=== PATIENT | male | born 1975 | race Caucasian/White ===

== ENCOUNTER → 2020-08-28 | Outpatient (CLI) | payer SELFPAY ==
--- NOTE | 2020-08-28 15:28 | Diagnostic Imaging Report ---
PROCEDURE: MR imaging cervical spine without contrast. TECHNIQUE: Multiplanar, multisequence MR imaging of the cervical spine was performed without contrast. INDICATION: Neck pain with radiation of bilateral hands. Anesthesias. COMPARISON: None. FINDINGS: Static alignment of the cervical spine is maintained. There is no significant anterolisthesis or retrolisthesis. There is no evidence of jumped facets. Vertebral body heights are preserved. There is no acute fracture. Marrow signal is normal throughout. Intervertebral disc heights are also fairly well maintained. Cervical cord is normal in size and signal. There is no evidence of cord edema. No abnormal intrathecal filling defects are seen. Included portions of the posterior fossa are unremarkable. Prevertebral and paravertebral soft tissue structures are within normal limits as well. C2-C3: There is no large disc bulge or focal protrusion. There is no significant spinal canal or neuroforaminal stenosis. C3-C4: There is right-sided uncovertebral hypertrophy which results in mild asymmetric narrowing of the right neuroforamen. Spinal canal and left neuroforamen are unremarkable. C4-C5: There is no large disc bulge or focal protrusion. There is no significant spinal canal or neuroforaminal stenosis. C5-C6: There is no large disc bulge or focal protrusion. There is no significant spinal canal or neuroforaminal stenosis. C6-C7: There is no large disc bulge or focal protrusion. There is no significant spinal canal or neuroforaminal stenosis. C7-T1: There is no large disc bulge or focal protrusion. There is no significant spinal canal or neuroforaminal stenosis. IMPRESSION: 1. Minimal degenerative changes at the C3-C4 level on the right. Otherwise, no significant spinal canal or neuroforaminal stenosis. 2. No acute fracture or dislocation in the cervical spine. Dictated by: Dictated on workstation # [id number]
== END ==
LOC: RAD 14:00
PROVIDERS: ATTEND Chiropractor
DX: M54.12 Radiculopathy, cervical region (principal)
CPT/HCPCS: 72141

== ENCOUNTER 2020-10-16 23:58 | Emergency (ER) | payer SELFPAY ==
[~2020-10-16] VITALS: Ht 168 cm; Wt 107.0 kg
--- NOTE | 2020-10-17 00:10 | ED Integumentary General ---
General Chief Complaint: Laceration Stated Complaint: CUT RT ARM Source: patient Exam Limitations: no limitations History of Present Illness Date Seen by Provider: Oct 17, 2020 Time Seen by Provider: 00:01 Initial Comments Patient is a 45-year-old male who presents to the emergency department today with a chief complaint of left hand laceration. Patient states that he was doing dishes when a ceramic plate fell onto some dishwater and broke he reached down to grab the dish and cut his hand between his thumb and index finger. Pain immediately. Significant bleeding. Timing/Duration: just prior to arrival Severity: moderate Location: hands (left) Associated Symptoms: denies symptoms Allergies and Home Medications Allergies Coded Allergies: No Known Drug Allergies (Unverified , 10/17/20) Patient Home Medication List Home Medication List Reviewed: Yes Review of Systems Review of Systems Constitutional: see HPI EENTM: no symptoms reported Respiratory: no symptoms reported Cardiovascular: no symptoms reported Gastrointestinal: no symptoms reported Genitourinary: no symptoms reported Musculoskeletal: no symptoms reported, other Skin: other (4-1/2 cm length laceration by 1-1/2 cm depth laceration located between the index finger and thumb of the left hand in the webspace. Significant active bleeding noted initially.) All Other Systems Reviewed Negative Unless Noted: Yes Physical Exam Vital Signs Vital Signs - First Documented 10/16/20 23:58 Temp 36.6 Pulse 106 Resp 20 B/P (MAP) 133/82 (99) Pulse Ox 96 O2 Delivery Room Air Capillary Refill : General Appearance: WD/WN, no apparent distress Cardiovascular: regular rate, rhythm Respiratory: normal breath sounds, no respiratory distress, no accessory muscle use Gastrointestinal: soft Extremities: non-tender, normal inspection Neurologic/Psychiatric: alert, normal mood/affect, oriented x 3 Skin: normal color, warm/dry, other (Patient is distal neurovascularly intact to the digits of the left hand; 4-1/2 cm length by 1-1/2 cm depth laceration between the webspace of the thumb and index finger) Procedures/Interventions Wound Location: Upper Extremities (left hand) Other Wound Location Located between the index finger and thumb at the webspace Wound Length (cm): 4.5 Wound's Depth, Shape: superficial (1.5cm deep), linear Wound Explored: clean Irrigated w/ Saline (ccs): 50 Betadine Prep?: No Anesthesia: Lidocaine w/ Epi Volume Anesthetic (ccs): 5 Suture: Ethlion, Vicryl (4-0) Suture Size: 4-0 Number of Sutures: 7 Layer Closure?: 2 Number Deep Layer Sutures: 1 Sterile Dressing Applied?: Yes Progress/Results/Core Measures Results/Orders My Orders Orders - SOO GTZ MD Hydrocodone/Apap 7.5/325 Tab (Lortab 7. (10/17/20 01:30) Cephalexin Capsule (Keflex Capsule) (10/17/20 01:30) Rx-Hydrocodone/Apap 5-325 Mg (Rx-Vicodin (10/17/20 01:30) Vital Signs/I&O 10/16/20 23:58 Temp 36.6 Pulse 106 Resp 20 B/P (MAP) 133/82 (99) Pulse Ox 96 O2 Delivery Room Air Progress Progress Note : Time: 01:14 Progress Note Patient seen and evaluated 45-year-old male with a chief complaint of laceration to the left hand. Patient initially had a tourniquet applied to the left upper extremity for hemostasis. Of note a small superficial arterial bleed. With direct pressure and the tourniquet and lidocaine with epinephrine bleeding was controlled and subsequently stopped. Patient's wound was closed with a 4-0 Vicryl stitch in the subcutaneous tissues. Seven 4-0 Ethilon sutures were subsequently placed to the skin. Wound approximated quite well. Patient will be sent home with a hydrocodone take-home pack for pain. He is also given Keflex for infection prophylaxis. He is advised to return to the emergency department in 10 days for wound evaluation and possible suture removal. Patient is in instructed to keep the wound clean dry and covered for the next 72 hours. He is advised not to submerge the lacerated hand in water for the remainder of the sutures being in place. He verbalizes understanding. All questions are sought and answered. Patient is stable for discharge. Departure Impression Primary Impression: Laceration of left hand Qualified Codes: S61.412A - Laceration without foreign body of left hand, initial encounter Disposition: HOME, SELF-CARE Condition: Stable Departure-Patient Inst. Decision time for Depature: 01:19 Referrals: [facility] [place] Patient Instructions: Laceration Repair With Stitches (DC) Add. Discharge Instructions: Keep the wound clean dry and covered for the next 24 to 48 hours. Do not submerge the hand underwater but you may wash the stitches with wet soapy water, rinse them and then keep them dry. The stitches will need to come out in 10 to 14 days. Please come back to the emergency room in 10 days so that we may evaluate the wound and see if they can come out at the 10-day varun. I have given you some hydrocodone for home. You can also take [id number] Tylenol and/or ibuprofen after tomorrow as needed for pain. I have also put you on some Keflex which is an antibiotic. Please take this 3 times a day for the next 7 days. Come back to the emergency department if you have redness, swelling or drainage from the wound or any other emergent concerning symptoms arise. Scripts Cephalexin (Cephalexin) 500 Mg Tablet 500 MG PO TID, #21 TAB Prov: SOO GTZ MD 10/17/20 SOO GTZ MD Oct 17, 2020 00:10
[2020-10-17] MEDS ORDERED: CEPH500T PO (01:22)
[2020-10-17] MEDS ORDERED: RX-HYDROCODONE/APAP 5/325 MG #4 TAB PK PO PRN (01:30)
[2020-10-17] MEDS ORDERED: CEPHALEXIN 250 MG (KEFLEX) CAP PO ONE (01:30)
[2020-10-17] MEDS ORDERED: HYDROcodone/APAP 7.5 MG/325 MG (LORTAB, LORCET PLUS) TABLET PO ONE (01:30)
[2020-10-17 01:35] VITALS: BP 133/82
== END 2020-10-17 01:28 | disposition home or self-care (01) ==
LOC: EDUNIT# 23:58 → ER 10-17
DX: S61.412A Laceration without foreign body of left hand, initial encounter (principal); W25.XXXA Contact with sharp glass, initial encounter
CPT/HCPCS: 12042

== ENCOUNTER 2020-10-27 11:50 | Emergency (ER) | payer SELFPAY ==
[~2020-10-27] VITALS: Ht 172 cm; Wt 107.0 kg
[~2020-10-27 11:50] MED LIST: CEPH500T PO
[2020-10-27 11:55] VITALS: BP 147/101
== END 2020-10-27 11:55 | disposition home or self-care (01) ==
LOC: EDUNIT# 11:50 → ER 11:53
DX: S61.412D Laceration without foreign body of left hand, subsequent encounter (principal); X58.XXXD Exposure to other specified factors, subsequent encounter
CPT/HCPCS: 99281

== ENCOUNTER 2022-05-22 18:11 | Emergency (ER) | payer SELFPAY ==
[~2022-05-22] VITALS: Ht 167 cm; Wt 106.0 kg
[2022-05-22] MEDS ORDERED: morphine INJ 10 MG/ML 1ML (SYR OR VIAL) IVP STA ×2 (18:24→19:47)
[2022-05-22] MEDS ORDERED: KETOROLAC 30 MG/ML VIAL IVP ONE (18:30)
[2022-05-22] MEDS ORDERED: IOHEXOL 350 MG/ML 100 ML (OMNIPAQUE 350) VIAL IV ONE (18:30)
[2022-05-22] MEDS ORDERED: HOLD METFORMIN - RECEIVED CONTRAST 20 ML VIAL IV SCH (18:30)
[2022-05-22] MEDS ORDERED: CATHETER FLUSH 10 ML SYR IV PRN (18:30)
[2022-05-22] MEDS ORDERED: NS 100 ML (IVPB) BAG IV ONE (18:30)
--- NOTE | 2022-05-22 18:36 | ED Abdominal Pain ---
General Chief Complaint: Abdominal/GI Problems Stated Complaint: ABD/BACK PAIN Nursing Triage Note: Pt here with right flank pain that radiates around to his abdomen; describes it as sharp in nature and also achy. Denies n/v/d. Denies urinary s/s. Source of Information: Patient Exam Limitations: No Limitations History of Present Illness Date Seen by Provider: May 22, 2022 Time Seen by Provider: 18:20 Initial Comments Patient is a 46-year-old male who presents to the emergency department for evaluation of right flank and diffuse abdominal pain that began 3 days ago. Patient states the pain does radiate throughout his abdomen. He denies any nausea/vomiting/diarrhea, constipation, bloody stools, fever, hematuria, dysuria. He also denies any testicular pain. Denies any history of similar symptoms. Patient has not taken anything today other than Tylenol and ibuprofen. Allergies and Home Medications Allergies Coded Allergies: No Known Drug Allergies (Unverified , 10/17/20) Patient Home Medication List Home Medication List Reviewed: Yes Cephalexin (Cephalexin) 500 Mg Tablet, 500 MG PO TID Prescribed by: SOO GTZ on 10/17/20 012 Hyoscyamine Sulfate (Levsin-Sl) 0.125 Mg Tab.subl, 0.125 MG SL TID PRN for abd pain Prescribed by: Armond Gibson on 05/22/222017 Ketorolac Tromethamine (Ketorolac Tromethamine) 10 Mg Tablet, 10 MG PO Q6H PRN for PAIN-SEE DOSE INSTRUCTIONS Prescribed by: Armond Gibson on 05/22/222017 Review of Systems Review of Systems Constitutional: no symptoms reported EENTM: No Symptoms Reported Respiratory: No Symptoms Reported Cardiovascular: No Symptoms Reported Gastrointestinal: See HPI Genitourinary: No Symptoms Reported Skin: no symptoms reported Psychiatric/Neurological: No Symptoms Reported Past Ezsnafi-Mdwhfx-Bwxcxt Hx Patient Social History Smoking Status: Never a Smoker Smokeless Tobacco Frequency: Never a User Use of E-Cig and/or Vaping Miguel A: Never a User Substance type: Marijuana Substance frequency: Daily Alcohol Use?: No Pt feels they are or have been: No Immunizations Up To Date Tetanus Booster (TDap): Less than 5yrs PED Vaccines UTD: Yes Seasonal Allergies Seasonal Allergies: No Past Medical History Surgeries: No Respiratory: No Hypertension Neurological: No Genitourinary: No Gastrointestinal: No Musculoskeletal: No Endocrine: No HEENT: No Cancer: No Psychosocial: No Integumentary: No Physical Exam Vital Signs Vital Signs - First Documented 05/22/22 18:21 Temp 35.9 Pulse 76 Resp 18 B/P (MAP) 176/108 (130) Pulse Ox 96 O2 Delivery Room Air Capillary Refill : Less Than 3 Seconds Height/Weight/BMI Height: '" Weight: lbs. oz. kg; 38.00 BMI Method:Actual General Appearance: WD/WN, no apparent distress HEENT: PERRL/EOMI, normal ENT inspection, TMs normal, pharynx normal Neck: non-tender, full range of motion, supple, normal inspection Respiratory: chest non-tender, lungs clear, normal breath sounds, no respiratory distress, no accessory muscle use Cardiovascular: regular rate, rhythm Gastrointestinal: normal bowel sounds, non tender, soft Extremities: normal range of motion, non-tender Back: normal inspection, no vertebral tenderness Neurologic/Psychiatric: alert, normal mood/affect, oriented x 3 Skin: normal color, warm/dry Procedures/Interventions Suture Size: 4-0 Progress/Results/Core Measures Results/Orders Lab Results Laboratory Tests Test 05/22/22 18:30 05/22/22 18:44 Range/Units White Blood Count 6.5 4.3-11.0 10^3/uL Red Blood Count 5.80 H 4.30-5.52 10^6/uL Hemoglobin 17.1 13.3-17.7 g/dL Hematocrit 49 40-54 % Mean Corpuscular Volume 84 80-99 fL Mean Corpuscular Hemoglobin 30 25-34 pg Mean Corpuscular Hemoglobin Concent 35 32-36 g/dL Red Cell Distribution Width 12.4 10.0-14.5 % Platelet Count 210 130-400 10^3/uL Mean Platelet Volume 10.2 9.0-12.2 fL Immature Granulocyte % (Auto) 0 % Neutrophils (%) (Auto) 58 42-75 % Lymphocytes (%) (Auto) 28 12-44 % Monocytes (%) (Auto) 9 0-12 % Eosinophils (%) (Auto) 4 0-10 % Basophils (%) (Auto) 0 0-10 % Neutrophils # (Auto) 3.8 1.8-7.8 10^3/uL Lymphocytes # (Auto) 1.8 1.0-4.0 10^3/uL Monocytes # (Auto) 0.6 0.0-1.0 10^3/uL Eosinophils # (Auto) 0.3 0.0-0.3 10^3/uL Basophils # (Auto) 0.0 0.0-0.1 10^3/uL Immature Granulocyte # (Auto) 0.0 0.0-0.1 10^3/uL Sodium Level 141 135-145 MMOL/L Potassium Level 3.7 3.6-5.0 MMOL/L Chloride Level 106 98-107 MMOL/L Carbon Dioxide Level 24 21-32 MMOL/L Anion Gap 11 5-14 MMOL/L Blood Urea Nitrogen 17 7-18 MG/DL Creatinine 1.37 H 0.60-1.30 MG/DL Estimat Glomerular Filtration Rate 65 BUN/Creatinine Ratio 12 Glucose Level 80 70-105 MG/DL Calcium Level 9.1 8.5-10.1 MG/DL Corrected Calcium 8.8 8.5-10.1 MG/DL Total Bilirubin 0.5 0.1-1.0 MG/DL Aspartate Amino Transf (AST/SGOT) 28 5-34 U/L Alanine Aminotransferase (ALT/SGPT) 48 0-55 U/L Alkaline Phosphatase 71 40-136 U/L Total Protein 7.3 6.4-8.2 GM/DL Albumin 4.4 3.2-4.5 GM/DL Lipase 28 8-78 U/L Urine Color DARK YELLOW Urine Clarity CLEAR Urine pH 5.5 5-9 Urine Specific Noonan >=1.030 1.016-1.022 Urine Protein TRACE H NEGATIVE Urine Glucose (UA) NEGATIVE NEGATIVE Urine Ketones NEGATIVE NEGATIVE Urine Nitrite NEGATIVE NEGATIVE Urine Bilirubin NEGATIVE NEGATIVE Urine Urobilinogen 1.0 < = 1.0 MG/DL Urine Leukocyte Esterase NEGATIVE NEGATIVE Urine RBC (Auto) NEGATIVE NEGATIVE Urine RBC NONE /HPF Urine WBC RARE /HPF Urine Crystals NONE /LPF Urine Bacteria TRACE /HPF Urine Casts NONE /LPF Urine Mucus MODERATE H /LPF Urine Culture Indicated NO My Orders Orders - ARMOND GIBSON TAX TECHNICIAN Cbc With Automated Diff (05/22/22 18:24) Comprehensive Metabolic Panel (05/22/22 18:24) Ua Culture If Indicated (05/22/22 18:24) Lipase (05/22/22 18:24) Iv/Invasive Line Insertion .IV INSERT (05/22/22 18:24) Ct Abdomen W (05/22/22 18:24) Ketorolac Injection (Toradol Injection) (05/22/22 18:30) Morphine Injection (Morphine Injection (05/22/22 18:24) Iohexol Injection (Omnipaque 350 Mg/Ml 1 (05/22/22 18:30) Received Contrast (Hold Metformin- Contr (05/22/22 18:30) Sodium Chloride Flush (Catheter Flush Sy (05/22/22 18:30) Ns (Ivpb) (Sodium Chloride 0.9% Ivpb Bag (05/22/22 18:30) Morphine Injection (Morphine Injection (05/22/22 19:47) Hyoscyamine Sl Tablet (Levsin Sl Tablet) (05/22/22 20:30) Medications Given in ED Current Medications Medications Dose Ordered Sig/Huong Route Start Time Stop Time Status Last Admin Dose Admin Hyoscyamine Sulfate 0.125 mg ONCE ONCE PO 05/22/22 20:30 05/22/22 20:31 DC 05/22/22 20:23 0.125 MG Iohexol 100 ml ONCE ONCE IV 05/22/22 18:30 05/22/22 18:31 DC 05/22/22 19:15 80 ML Ketorolac Tromethamine 15 mg ONCE ONCE IVP 05/22/22 18:30 05/22/22 18:31 DC 05/22/22 18:36 15 MG Sodium Chloride 100 ml ONCE ONCE IV 05/22/22 18:30 05/22/22 18:31 DC 05/22/22 19:15 100 ML Vital Signs/I&O 05/22/22 05/22/22 05/22/22 05/22/22 18:21 18:59 20:14 20:31 Temp 35.9 35.9 Pulse 76 82 70 70 Resp 18 18 18 18 B/P (MAP) 176/108 (130) 154/92 (112) 145/95 (112) 145/95 Pulse Ox 96 96 96 96 O2 Delivery Room Air Room Air Room Air Room Air Blood Pressure Mean: 130 Progress Progress Note : Progress Note Patient is nontoxic and well-hydrated on exam. Patient does have tenderness to palpation to the right flank as well as diffusely throughout his anterior abdomen. Vital signs are reassuring. Laboratory evaluation is unremarkable. No leukocytosis noted on CBC. No metabolic derangements noted on CMP. No transaminitis or elevated lipase appreciated. CT of the abdomen and pelvis with contrast is acutely negative. There is some incidental notation of hepatic steatosis. There appears to be no etiology of the patient's pain that would warrant further emergent testing or surgical intervention/hospitalization. Discussed supportive care and anticipatory guidance. Discussed need for follow- up with PCP. Return precautions for urgent symptomology discussed. Patient verbalized understanding. Departure Impression Primary Impression: Right flank pain Additional Impression: Abdominal pain Qualified Codes: R10.84 - Generalized abdominal pain Disposition: HOME, SELF-CARE Condition: Improved Departure-Patient Inst. Decision time for Depature: 20:15 Referrals: [facility] [place]/Family) Primary Care Physician Patient Instructions: Abdominal Pain, Adult ED, Flank Pain ED Scripts Hyoscyamine Sulfate (Levsin-Sl) 0.125 Mg Tab.subl 0.125 MG SL TID PRN for abd pain for 5 Days, #12 TAB 0 Refills Prov: ARMOND GIBSON APRN 05/22/22 Ketorolac Tromethamine (Ketorolac Tromethamine) 10 Mg Tablet 10 MG PO Q6H PRN for PAIN-SEE DOSE INSTRUCTIONS for 5 Days, #20 TAB 0 Refills Prov: ARMOND GIBSON APRN 05/22/22 ARMOND GIBSON APRN May 22, 2022 18:36
[2022-05-22 18:37] LABS: BASOPHILS % (AUTO) 0 % (0-10); EOSINOPHILS # (AUTO) 0.3 10^3/uL (0.0-0.3); EOSINOPHILS % (AUTO) 4 % (0-10); HEMATOCRIT 49 % (40-54); HEMOGLOBIN 17.1 g/dL (13.3-17.7); LYMPHOCYTES # (AUTO) 1.8 10^3/uL (1.0-4.0); LYMPHOCYTES % (AUTO) 28 % (12-44); MEAN CORPUSCULAR HEMOGLOBIN 30 pg (25-34); MEAN CORPUSCULAR HGB CONC 35 g/dL (32-36); MEAN CORPUSCULAR VOLUME 84 fL (80-99); MEAN PLATELET VOLUME 10.2 fL (9.0-12.2); MONOCYTES # (AUTO) 0.6 10^3/uL (0.0-1.0); MONOCYTES % (AUTO) 9 % (0-12); NEUTROPHILS # (AUTO) 3.8 10^3/uL (1.8-7.8); NEUTROPHILS % (AUTO) 58 % (42-75); PLATELET COUNT 210 10^3/uL (130-400); WHITE BLOOD COUNT 6.5 10^3/uL (4.3-11.0)
[2022-05-22 18:48] LABS: ALBUMIN 4.4 GM/DL (3.2-4.5)
[2022-05-22 18:49] LABS: POTASSIUM 3.7 MMOL/L (3.6-5.0)
[2022-05-22 18:49] LABS: BILIRUBIN,URINE NEGATIVE (NEGATIVE); CLARITY,URINE CLEAR; COLOR,URINE DARK YELLOW; GLUCOSE, URINE (UA) NEGATIVE (NEGATIVE); KETONES,URINE NEGATIVE (NEGATIVE); LEUKOCYTE ESTERASE ,URINE NEGATIVE (NEGATIVE); NITRITE,URINE NEGATIVE (NEGATIVE); PH,URINE 5.5 (5-9); PROTEIN,URINE TRACE (NEGATIVE)
[2022-05-22 18:50] LABS: CALCIUM 9.1 MG/DL (8.5-10.1)
[2022-05-22 18:51] LABS: TOTAL PROTEIN 7.3 GM/DL (6.4-8.2)
[2022-05-22 18:53] LABS: BILIRUBIN,TOTAL 0.5 MG/DL (0.1-1.0)
[2022-05-22 18:55] LABS: BACTERIA,URINE TRACE /HPF; WBC,URINE RARE /HPF
[2022-05-22 18:55] LABS: CREATININE SERUM 1.37 MG/DL (0.60-1.30)
--- NOTE | 2022-05-22 19:48 | Diagnostic Imaging Report ---
PROCEDURE: CT abdomen with contrast only. TECHNIQUE: Multiple contiguous axial images were obtained through the abdomen after the administration of intravenous contrast. Auto Exposure Controls were utilized during the CT exam to meet ALARA standards for radiation dose reduction. INDICATION: Right flank pain with radiation around the abdomen. COMPARISON: None. FINDINGS: Included portions of the lung bases are clear. CT ABDOMEN: Normal appendix is identified. Included small bowel loops are nondistended. The kidneys, adrenal glands, spleen and pancreas have a normal CT appearance. Liver appears mildly diffusely hypodense on this postcontrast exam. This is suggestive of underlying fatty steatosis. No suspicious hepatic mass is seen. There is no loculated fluid collection, free fluid or free air within the abdomen. No abnormal mesenteric or retroperitoneal adenopathy is seen. Osseous structures show no acute abnormality. IMPRESSION: 1. No acute abnormality is seen within the abdomen. 2. Findings suspicious for hepatic steatosis. Dictated by: Dictated on workstation # [id number]
[2022-05-22] MEDS ORDERED: HYOS0.1283 SL (20:18)
[2022-05-22] MEDS ORDERED: KETO10TA PO (20:18)
[2022-05-22] MEDS ORDERED: HYOSCYAMINE 0.125 MG (LEVSIN) TAB PO ONE (20:30)
[2022-05-22 20:31] VITALS: BP 145/95
== END 2022-05-22 20:33 | disposition home or self-care (01) ==
LOC: EDUNIT# 18:11 → ER 18:13
DX: R10.84 Generalized abdominal pain (principal); Z28.310 Unvaccinated for COVID-19
CPT/HCPCS: 36415; 74160; 80053; 81000; 83690; 85025

== ENCOUNTER 2022-06-13 15:16 | Emergency (ER) | payer SELFPAY ==
[~2022-06-13] VITALS: Ht 167.7 cm; Wt 102.1 kg
[~2022-06-13 15:16] MED LIST changes: +HYOS0.1283 SL; +KETO10TA PO
[2022-06-13 15:51] LABS: BASOPHILS % (AUTO) 0 % (0-10); EOSINOPHILS # (AUTO) 0.1 10^3/uL (0.0-0.3); EOSINOPHILS % (AUTO) 2 % (0-10); HEMATOCRIT 47 % (40-54); HEMOGLOBIN 16.5 g/dL (13.3-17.7); LYMPHOCYTES # (AUTO) 1.7 X 10^3 (1.0-4.0); LYMPHOCYTES % (AUTO) 23 % (12-44); MEAN CORPUSCULAR HEMOGLOBIN 30 pg (25-34); MEAN CORPUSCULAR HGB CONC 35 g/dL (32-36); MEAN CORPUSCULAR VOLUME 84 fL (80-99); MEAN PLATELET VOLUME 9.6 fL (9.0-12.2); MONOCYTES # (AUTO) 0.5 X 10^3 (0.0-1.0); MONOCYTES % (AUTO) 7 % (0-12); NEUTROPHILS # (AUTO) 4.9 X 10^3 (1.8-7.8); NEUTROPHILS % (AUTO) 68 % (42-75); PLATELET COUNT 236 10^3/uL (130-400); WHITE BLOOD COUNT 7.2 10^3/uL (4.3-11.0)
[2022-06-13] MEDS ORDERED: KETOROLAC 30 MG/ML VIAL IVP ONE (16:00)
[2022-06-13 16:02] LABS: BILIRUBIN,URINE NEGATIVE (NEGATIVE); CLARITY,URINE CLEAR; COLOR,URINE YELLOW; GLUCOSE, URINE (UA) NEGATIVE (NEGATIVE); KETONES,URINE NEGATIVE (NEGATIVE); LEUKOCYTE ESTERASE ,URINE NEGATIVE (NEGATIVE); NITRITE,URINE NEGATIVE (NEGATIVE); PROTEIN,URINE NEGATIVE (NEGATIVE)
[2022-06-13 16:04] LABS: ALBUMIN 4.1 GM/DL (3.2-4.5)
[2022-06-13 16:05] LABS: POTASSIUM 4.1 MMOL/L (3.6-5.0)
[2022-06-13 16:06] LABS: CALCIUM 9.2 MG/DL (8.5-10.1)
[2022-06-13 16:07] LABS: TOTAL PROTEIN 6.7 GM/DL (6.4-8.2)
[2022-06-13 16:09] LABS: BILIRUBIN,TOTAL 0.6 MG/DL (0.1-1.0)
[2022-06-13 16:10] LABS: CREATININE SERUM 1.22 MG/DL (0.60-1.30)
[2022-06-13 16:20] LABS: BACTERIA,URINE FEW /HPF; RBC,URINE RARE /HPF
--- NOTE | 2022-06-13 16:32 | Diagnostic Imaging Report ---
PROCEDURE: US Scrotum. TECHNIQUE: Multiple real-time grayscale images were obtained over the scrotum in various projections bilaterally. INDICATION: Abdominal pain radiating into groin. FINDINGS: The right testicle measures 4.2 x 2 x 2.8 cm. The left testicle measures 4.2 x 2 x 2.8 cm. No masses are seen. There is microlithiasis seen scattered throughout both testicles. There is normal blood flow within the testes with Doppler sampling. The epididymides appear normal bilaterally. There are no hydroceles or varicoceles. IMPRESSION: 1. Microlithiasis. No other abnormalities noted. Dictated by: Dictated on workstation # [id number]
[2022-06-13] MEDS ORDERED: HYOS0.1283 SL (16:50)
--- NOTE | 2022-06-13 16:50 | ED Abdominal Pain ---
General Chief Complaint: Abdominal/GI Problems Stated Complaint: ABD PAIN Nursing Triage Note: PT AMB TO RM 3 W C/O GENERALIZED ABD PAIN ONLY RELIEVED BY SUPINE POSITION. PT REPORTS HE CAME TO ED FOR THIS ON 05/22/22 AND WENT TO [facility] TODAY WHERE HE WAS ADVISED TO COME TO ED FOR FURTHER EVALUATION AND TX. PT ALSO REPORTS THE PAIN RADIATES DOWN TO HIS TESTICLES. PT A&OX4. Source of Information: Patient Exam Limitations: Intoxication History of Present Illness Date Seen by Provider: Jun 13, 2022 Allergies and Home Medications Allergies Coded Allergies: No Known Drug Allergies (Unverified , 10/17/20) Patient Home Medication List Cephalexin (Cephalexin) 500 Mg Tablet, 500 MG PO TID Prescribed by: SOO GTZ on 10/17/20 012 Hyoscyamine Sulfate (Levsin-Sl) 0.125 Mg Tab.subl, 0.125 MG SL TID PRN for abd pain Prescribed by: Joy Gibson on 05/22/222017 Ketorolac Tromethamine (Ketorolac Tromethamine) 10 Mg Tablet, 10 MG PO Q6H PRN for PAIN-SEE DOSE INSTRUCTIONS Prescribed by: Joy Gibson on 05/22/222017 Past Vqrdpeo-Bhvjco-Qheymn Hx Patient Social History Tobacco Use?: No Use of E-Cig and/or Vaping dev: No Substance use?: Yes Substance type: Marijuana Alcohol Use?: No Immunizations Up To Date Tetanus Booster (TDap): Less than 5yrs PED Vaccines UTD: Yes Influenza Vaccine Up-to-Date: Yes; Up-to-Date Seasonal Allergies Seasonal Allergies: No Past Medical History Surgeries: No Respiratory: No Hypertension Neurological: No Genitourinary: No Gastrointestinal: No Musculoskeletal: No Endocrine: No HEENT: No Cancer: No Psychosocial: No Integumentary: No Physical Exam Vital Signs Vital Signs - First Documented 06/13/22 15:28 Temp 36.2 Pulse 80 Resp 20 B/P (MAP) 123/85 (98) Pulse Ox 95 O2 Delivery Room Air Capillary Refill : Less Than 3 Seconds Height/Weight/BMI Height: '" Weight: lbs. oz. kg; 36.00 BMI Method:Actual Procedures/Interventions Suture Size: 4-0 Progress/Results/Core Measures Results/Orders Lab Results Laboratory Tests Test 06/13/22 15:38 06/13/22 15:50 Range/Units White Blood Count 7.2 4.3-11.0 10^3/uL Red Blood Count 5.59 H 4.30-5.52 10^6/uL Hemoglobin 16.5 13.3-17.7 g/dL Hematocrit 47 40-54 % Mean Corpuscular Volume 84 80-99 fL Mean Corpuscular Hemoglobin 30 25-34 pg Mean Corpuscular Hemoglobin Concent 35 32-36 g/dL Red Cell Distribution Width 12.0 10.0-14.5 % Platelet Count 236 130-400 10^3/uL Mean Platelet Volume 9.6 9.0-12.2 fL Immature Granulocyte % (Auto) 0 % Neutrophils (%) (Auto) 68 42-75 % Lymphocytes (%) (Auto) 23 12-44 % Monocytes (%) (Auto) 7 0-12 % Eosinophils (%) (Auto) 2 0-10 % Basophils (%) (Auto) 0 0-10 % Neutrophils # (Auto) 4.9 1.8-7.8 X 10^3 Lymphocytes # (Auto) 1.7 1.0-4.0 X 10^3 Monocytes # (Auto) 0.5 0.0-1.0 X 10^3 Eosinophils # (Auto) 0.1 0.0-0.3 10^3/uL Basophils # (Auto) 0.0 0.0-0.1 10^3/uL Immature Granulocyte # (Auto) 0.0 0.0-0.1 10^3/uL Sodium Level 139 135-145 MMOL/L Potassium Level 4.1 3.6-5.0 MMOL/L Chloride Level 107 98-107 MMOL/L Carbon Dioxide Level 24 21-32 MMOL/L Anion Gap 8 5-14 MMOL/L Blood Urea Nitrogen 25 H 7-18 MG/DL Creatinine 1.22 0.60-1.30 MG/DL Estimat Glomerular Filtration Rate 75 BUN/Creatinine Ratio 20 Glucose Level 93 70-105 MG/DL Calcium Level 9.2 8.5-10.1 MG/DL Corrected Calcium 9.1 8.5-10.1 MG/DL Total Bilirubin 0.6 0.1-1.0 MG/DL Aspartate Amino Transf (AST/SGOT) 23 5-34 U/L Alanine Aminotransferase (ALT/SGPT) 52 0-55 U/L Alkaline Phosphatase 60 40-136 U/L Total Protein 6.7 6.4-8.2 GM/DL Albumin 4.1 3.2-4.5 GM/DL Lipase 27 8-78 U/L Urine Color YELLOW Urine Clarity CLEAR Urine pH 6.0 5-9 Urine Specific Moro >=1.030 1.016-1.022 Urine Protein NEGATIVE NEGATIVE Urine Glucose (UA) NEGATIVE NEGATIVE Urine Ketones NEGATIVE NEGATIVE Urine Nitrite NEGATIVE NEGATIVE Urine Bilirubin NEGATIVE NEGATIVE Urine Urobilinogen 0.2 < = 1.0 MG/DL Urine Leukocyte Esterase NEGATIVE NEGATIVE Urine RBC (Auto) NEGATIVE NEGATIVE Urine RBC RARE /HPF Urine WBC NONE /HPF Urine Squamous Epithelial Cells NONE /HPF Urine Crystals NONE /LPF Urine Bacteria FEW H /HPF Urine Casts NONE /LPF Urine Mucus LARGE H /LPF Urine Culture Indicated YES My Orders Orders - JOY GIBSON APRN Cbc With Automated Diff (06/13/22 15:44) Comprehensive Metabolic Panel (06/13/22 15:44) Iv/Invasive Line Insertion .IV INSERT (06/13/22 15:44) Lipase (06/13/22 15:44) Ua Culture If Indicated (06/13/22 15:44) Us Scrotum (Testicle) 11315 (06/13/22 15:47) Ketorolac Injection (Toradol Injection) (06/13/22 16:00) Urine Culture (06/13/22 15:50) Medications Given in ED Current Medications Medications Dose Ordered Sig/Huong Route Start Time Stop Time Status Last Admin Dose Admin Ketorolac Tromethamine 30 mg ONCE ONCE IVP 06/13/22 16:00 06/13/22 16:01 DC 06/13/22 15:56 30 MG Vital Signs/I&O 06/13/22 06/13/22 15:28 15:56 Temp 36.2 36.2 Pulse 80 Resp 20 B/P (MAP) 123/85 (98) Pulse Ox 95 O2 Delivery Room Air Blood Pressure Mean: 98 Departure Impression Primary Impression: Abdominal pain Qualified Codes: R10.84 - Generalized abdominal pain Additional Impression: Testicular pain Qualified Codes: N50.811 - Right testicular pain; N50.812 - Left testicular pain Disposition: 01 HOME, SELF-CARE Condition: Stable Departure-Patient Inst. Decision time for Depature: 16:45 Referrals: [facility] (PCP/Family) Primary Care Physician Patient Instructions: Abdominal Pain, Adult ED Scripts Hyoscyamine Sulfate (Levsin-Sl) 0.125 Mg Tab.subl 0.125 MG SL TID for 7 Days, #21 TAB 0 Refills Prov: JOY GIBSON APRN 06/13/22 JOY GIBSON APRN Jun 13, 2022 16:50
[2022-06-13 17:00] VITALS: BP 123/85
== END 2022-06-13 16:58 | disposition home or self-care (01) ==
LOC: ER 15:16 → EDUNIT# 15:16 → ER 16:58
DX: R10.84 Generalized abdominal pain (principal); N50.819 Testicular pain, unspecified; Z28.310 Unvaccinated for COVID-19
CPT/HCPCS: 36415; 76870; 80053; 81000; 83690; 85025; 87088